=== PATIENT | female | born 1955 | race Caucasian/White ===

== ENCOUNTER → 2019-04-03 10:20 | Outpatient (CLI) | payer BC, SELFPAY ==
--- NOTE | ~2019-04-03 | DEXA_ITS ---
Bone Density Report Name: Bettie Cruz Age: 63 Sex: Female Ethnicity: White Date of : 1955 Indication: postmenopausal; screening for osteoporosis; Referring Provider: VIK OTERO Study: Bone densitometry was performed. Exam Date: April 03, 2019 Accession number: [id number] Bone Density: Region BMD T-score Z-score Classification AP Spine (L1-L4) 0.690 -3.2 -1.6 Osteoporosis Femoral Neck (Left) 0.581 -2.4 -1.0 Osteopenia Total Hip (Left) 0.767 -1.4 -0.3 Osteopenia Femoral Neck (Right) 0.548 -2.7 -1.3 Osteoporosis Total Hip (Right) 0.699 -2.0 -0.9 Osteopenia Total Hip Mean 0.733 -1.7 -0.6 Osteopenia World Health Organization criteria for BMD impression classify patients as: Normal (T-score at or above -1.0), Osteopenia (T-score between -1.0 and -2.5), or Osteoporosis (T-score at or below -2.5). 10-year Fracture Risk: FRAX not reported because: Some T-score for Spine Total or Hip Total or Femoral Neck at or below -2.5 Clinical Information Provided by Patient: Has used the following medications: Vitamin D Patient maximum height was 66.75 Menopause Age: 53 No regular weight bearing exercise Does not regularly consume dairy products Drinks caffeinated beverages Onset of menses at age 14 Number of children 2 Impression: The patient has osteoporosis, based on the Total Spine T-score. Discussion: INCREASED RISK OF FRACTURE. BONE DENSITY IS UNDESIRABLY LOW AT ONE OR MORE SKELETAL SITES, CONSISTENT WITH POSTMENOPAUSAL OSTEOPOROSIS. This patient's lowest T-score meets the World Health Organization's (WHO) criteria for osteoporosis at one or more sites (T-score -2.5 or below). In untreated patients, the risk of osteoporotic fracture increases approximately two-fold for each 1.0 SD decrease in T-score. Low bone density is not the only risk factor for fracture; also consider factors such as patient's age, frailty or poor health, risk of falling, risk of injury, previous osteoporotic fracture, family history of osteoporosis, cigarette smoking, low body weight, etc. Not everyone with low bone mineral density has osteoporosis; osteomalacia and other metabolic bone disorders should also be considered. Patients who have osteoporosis should be evaluated for specific diseases and conditions (secondary causes) that may cause or contribute to bone loss. The [place] [employer]ocr[employer] (AACE) and National Osteoporosis Foundation (NOF) recommend pharmacologic intervention for all postmenopausal women whose T-score is in this range. The patient should follow a healthful lifestyle (good nutrition with adequate calcium and vitamin D, and appropriate weight-bearing exercise). Follow-Up: Consider a repeat BMD and Vertebral Fracture Assessment (VFA) exam in 2 years or sooner if medically necessa
== END ==
PROVIDERS: PCP Internal Medicine Infectious Disease
DX: M81.0 Age-related osteoporosis without current pathological fracture (principal); M85.89 Other specified disorders of bone density and structure, multiple sites
CPT/HCPCS: 77080

== ENCOUNTER 2019-09-01 09:28 | Outpatient (CLI) | payer BC, SELFPAY ==
--- NOTE | 2019-09-06 13:00 | SLEEP_ITS ---
Home Sleep Test DATE OF STUDY: 09/01/2019 ORDERING PHYSICIAN: Otilia Adams MD. REASON FOR THIS STUDY: Obstructive sleep apnea syndrome. HISTORY: This patient is a 64-year-old woman, 5 feet 7 inches tall, weighing 125 pounds with a body mass index of 19.6. She has complaints of mental fogginess, non-refreshing sleep, lack of energy, loud snoring and waking up multiple times at night. She wakes up in the morning with a headache. She has used a CPAP machine in the past, but felt like she was not getting enough air and it was difficult to breathe, both taking a breath in and breathing out. She frequently snores and it is frequently loud enough that others complain about it. She occasionally has trouble sleeping with a cold. She rarely wakes up gasping for breath at night. She occasionally has problems at night observed by others and she occasionally sweats excessively at night. She rarely notices her heart pounding or beating irregularly at night, rarely falls asleep during the day, rarely involuntarily. She does not fall asleep while driving, during physical effort, or with strong emotion. She occasionally has loss of muscle tone with strong emotion. She rarely has daytime difficulties due to excessive sleepiness. She is retired. She does not have feeling of paralysis on waking or falling asleep. She occasionally has vivid dreamlike scenes upon waking or falling asleep. She is never afraid to go to sleep. She rarely has nightmares. She rarely remembers her dreams. She occasionally has racing thoughts, frequently feels sad, depressed, anxious and has muscular tension. She rarely notices parts of her body jerking. She does not kick at night or have crawly achy feelings in her legs. She rarely has leg pain at night. She does not have morning jaw pain. She occasionally grinds her teeth during sleep. She occasionally is bothered by pain during the day. She is rarely bothered by pain at night. She frequently wakes up feeling stiff in the morning, occasionally with sore achy muscles, occasionally with pain in the neck and spine. She has headaches, palpitations, sexual problems, fatigue, memory problems and concentration difficulties. She goes to bed between 10:00 and 11:00 p.m., falling asleep within 5 to 10 minutes, waking 3 to 4 times at night and she will go to the bathroom to urinate. She stays awake for about 5 minutes. She wakes in the morning at 07:00 to 08:00 a.m. Weekend schedule is the same. She estimates 7 to 8 hours of sleep at night. She does not take naps. She is usually drowsy in the morning for up to 2 hours. MEDICAL COMORBIDITIES: Neck and back pain, osteoporosis, nasal allergies, history of thyrotoxicosis, hyperlipidemia, obstructive sleep apnea syndrome on a prior home sleep test, 02/05/2017. This was an EASY BREATH. Home sleep test with an apnea-hypopnea index of 16.4, majority were obstructive, 34 obstructives, 16 central and 4 mixed apneas and the lowest saturation 84%. She previously did not have success using an auto PAP, which she purchased online. It could be that the range of pressures was too high. Indiscriminate pressure can worsen the central apnea component. I do not know what her prior settings were. The patient also has depression. Occasional heartburn. Montse's thyroiditis. MEDICATIONS: Valacyclovir 500 mg as needed for herpes. HABITS: Tobacco for several years, quit in 1979. Caffeine, 1 cup in the morning. Alcohol, 1 or 2 times weekly, red wine. DESCRIPTION OF THE STUDY: On the Vance Sleepiness Scale, her score is 5. This was conducted as an unattended type 3 portable home sleep test using 4 channel monitoring including respiratory effort channel, snoring channel, oxygen saturation channel, and hear
== END 2019-09-01 09:29 | disposition home or self-care (01) ==
LOC: ANHCSM 09:32
PROVIDERS: Visit Provider Internal Medicine Critical Care Medicine
DX: G47.33 Obstructive sleep apnea (adult) (pediatric) (principal)
CPT/HCPCS: 95806

== ENCOUNTER → 2019-09-04 10:44 | Outpatient (CLI) | payer BC, SELFPAY ==
--- NOTE | ~2019-09-04 | CT_ITS ---
EXAMINATION: CT chest wo con DATE: 09/04/2019 11:22 INDICATION: Solitary pulmonary nodule TECHNIQUE: Computed tomography (CT) of the chest was performed without intravenous contrast. The dose -length product (DLP) was 131.75 mGy-cm. Automated exposure control and iterative reconstruction tech nique were employed. COMPARISON: 03/03/2019 FINDINGS: There is a stable 10 mm x 9 mm pleural-based nodule of the right lower lobe. Additional sma ller pulmonary nodules measure up to 3 mm. The lungs are free of acute opacities. There is no pleural effusion or pneumothorax. Calcified coronary artery atherosclerosis is noted. No pathologically enla rged thoracic lymph nodes are identified. The heart size is normal. There is a trace pericardial effu malick. IMPRESSION: 1. Stable right lower lobe nodule, likely rounded atelectasis or scarring. Recommend follow-up CT in 12 months. Reviewed, dictated and finalized at location B. IMPRESSION: 1. Stable right lower lobe nodule, likely rounded atelectasis or scarring. Brian mmend follow-up CT in 12 months.
== END ==
PROVIDERS: PCP Internal Medicine Infectious Disease; Visit Provider Internal Medicine Critical Care Medicine
DX: R91.1 Solitary pulmonary nodule (principal)
CPT/HCPCS: 71250

== ENCOUNTER → 2019-09-04 10:45 | Outpatient (CLI) | payer BC, SELFPAY ==
--- NOTE | ~2019-09-04 | CT_ITS ---
EXAMINATION: CT abdomen pelvis w con DATE: 09/04/2019 11:22 INDICATION: Right ovarian mass. Right lower quadrant pain. TECHNIQUE: Computed tomography (CT) of the abdomen and pelvis was performed with 100 cc Omnipaque 350 intravenous contrast. The dose-length product was 299.63 mGy-cm. Automated exposure control and iter ative reconstruction technique were employed. COMPARISON: CT dated 03/03/2019 FINDINGS: There is a pleural-based right lower lobe mass measuring 10 x 7 mm without significant garcía ge from prior examination allowing for differences of technique. There is a small pericardial effusio n. Borderline heart size. No significant pleural effusion. Small subcentimeter hypodensity left hepatic lobe, most likely benign. The spleen, pancreas, adrenal glands and kidneys are unremarkable. There is moderate gas and fluid throughout the small bowel, poss ibly ileus. There is a hypodense right adnexal mass measuring 2.8 x 2.7 x 2.7 cm, possibly ovarian. S mall amount of free fluid in the pelvis. Nonobstructive bowel gas pattern. No acute osseous abnormali ty. IMPRESSION: 1. Hypodense right adnexal mass measuring 2.8 cm maximum dimension, likely ovarian. Similar appearanc e to prior examination. Differential diagnosis includes located ovarian/adnexal cyst, cystadenoma/cys tadenocarcinoma. Consider correlation with ultrasound. 2: Stable pleural-based 10 mm right lower lobe mass with adjacent atelectasis/scarring. Continued six -month follow-up CT is recommended. 3: Small pericardial effusion. Reviewed, dictated and finalized at location A. IMPRESSION: 1. Hypodense right adnexal mass measuring 2.8 cm maximum dimension, likely ovar haley. Similar appearance to prior examination. Differential diagnosis includes l ocated ovarian/adnexal cyst, cystadenoma/cystadenocarcinoma. Consider correlati on with ultrasound. 2: Stable pleural-based 10 mm right lower lobe mass with adjacent atelectasis/s carring. Continued six-month follow-up CT is recommended. 3: Small pericardial effusion.
[2019-09-04 11:10] LABS: Estimated Glomerular Filt Rate > 60
== END ==
PROVIDERS: PCP Internal Medicine Infectious Disease
DX: N83.8 Other noninflammatory disorders of ovary, fallopian tube and broad ligament (principal); R91.8 Other nonspecific abnormal finding of lung field; I31.3 Pericardial effusion (noninflammatory)
CPT/HCPCS: 36415; 74177; Q9967

== ENCOUNTER 2019-10-13 12:38 | Outpatient (CLI) | payer BC, SELFPAY ==
--- NOTE | 2019-10-24 12:25 | WPDPFTINT ---
PFT Interpretation PFT Interpretation: This PFT met all criteria for ATS standards and reproducibility FEV/FVC post bronchodilator 77% of predicted FEV1 108% FVC 103% TLC 108% RV 113% RV/TLC 40% DLCO 97% when adjusted for alveolar volume but not adjusted for hemoglobin Flow volume loops were normal Impression: This is a normal PFT. Clinical correlation is advised.
== END 2019-10-13 12:39 | disposition home or self-care (01) ==
PROVIDERS: PCP Internal Medicine Infectious Disease; Visit Provider Internal Medicine Critical Care Medicine
DX: R07.9 Chest pain, unspecified (principal)
CPT/HCPCS: 94060; 94726; 94729

== ENCOUNTER 2019-12-05 01:46 | Outpatient (CLI) | payer BC, SELFPAY ==
[2019-12-05 19:05] LABS: SARS-CoV-2 RNA PCR Negative
== END 2019-12-05 01:47 | disposition home or self-care (01) ==
LOC: ANHCOVIDDT 01:46
PROVIDERS: PCP Internal Medicine Infectious Disease; Visit Provider Internal Medicine Critical Care Medicine
DX: Z01.812 Encounter for preprocedural laboratory examination (principal); Z20.828 Contact with and (suspected) exposure to other viral communicable diseases
CPT/HCPCS: 87635; C9803; U0003

== ENCOUNTER 2019-12-07 07:50 | Outpatient (CLI) | payer BC, SELFPAY ==
--- NOTE | 2020-01-08 15:34 | WPDSLEEPSTUD ---
Sleep Study Date of Study: 12/07/19 Ordering Provider: Israel Palmer APRN Interpreting Physician: Otilia Adams MD Sleep Study Type: CPAP Titration Height: 1.7 m Weight: 62.142 kg Body Mass Index: 21.4 Neck Circumference: 31.75 cm [place]: 5 Reason for Sleep Study On a home sleep test September 01, 2019, 2/3 of the events were obstructive, had a trial of auto Pap without success 5-15 cm. She adjusted her device to a CPAP of 8 cm with AHI 6.7 from Oct 11 through Nov 04. She has had bloating with increased pressures. She previously did not have success using an auto PAP, which she purchased online. It could be that the range of pressures was too high. Indiscriminate pressure can worsen the central apnea component. Sleep History Bettie Cruz is a 64-year-old female who had a home sleep test on September 01, 2019 which showed moderate obstructive sleep apnea with an AHI of 19. At the time, she had been on CPAP with poor response to therapy. During the HST 08/31, 68% of her events were obstructive and the remainder were central and mixed. She desaturated to 86%. She has used APAP therapy and CPAPat home but it has been less than optimal for her. She has an elevated apnea-hypopnea index. She has complaints of mental fogginess, non-refreshing sleep, lack of energy, loud snoring and waking up multiple times at night. She wakes up in the morning with a headache. She has used a CPAP machine in the past, but felt like she was not getting enough air and it was difficult to breathe, both taking a breath in and breathing out. She frequently snores and it is frequently loud enough that others complain about it. She occasionally has trouble sleeping with a cold. She rarely wakes up gasping for breath at night. She occasionally has problems at night observed by others and she occasionally sweats excessively at night. She rarely notices her heart pounding or beating irregularly at night, rarely falls asleep during the day, rarely involuntarily. She does not fall asleep while driving, during physical effort, or with strong emotion. She occasionally has loss of muscle tone with strong emotion. She rarely has daytime difficulties due to excessive sleepiness. She is retired. She does not have feeling of paralysis on waking or falling asleep. She occasionally has vivid dreamlike scenes upon waking or falling asleep. She is never afraid to go to sleep. She rarely has nightmares. She rarely remembers her dreams. She occasionally has racing thoughts, frequently feels sad, depressed, anxious and has muscular tension. She rarely notices parts of her body jerking. She does not kick at night or have crawly achy feelings in her legs. She rarely has leg pain at night. She does not have morning jaw pain. She occasionally grinds her teeth during sleep. She occasionally is bothered by pain during the day. She is rarely bothered by pain at night. She frequently wakes up feeling stiff in the morning, occasionally with sore achy muscles, occasionally with pain in the neck and spine. She has headaches, palpitations, sexual problems, fatigue, memory problems and concentration difficulties. She goes to bed between 10:00 and 11:00 p.m., falling asleep within 5 to 10 minutes, waking 3 to 4 times at night and she will go to the bathroom to urinate. She stays awake for about 5 minutes. She wakes in the morning at 07:00 to 08:00 a.m. Weekend schedule is the same. She estimates 7 to 8 hours of sleep at night. She does not take naps. She is usually drowsy in the morning for up to 2 hours. PMH: Depression. Occasional heartburn. Montse's thyroiditis.Neck and back pain, osteoporosis, nasal allergies, history of thyrotoxicosis, hyperlipidemia, obstructive sleep apnea syndrome on a prior home sleep test, 02/05/2017. This was an EASY BREATH Home sleep test with an apnea-hypopnea index of 16.4, majority were obstructive, 34 obstructives, 16 central and 4 mixed apneas and the lowest saturation
[2020-01-31 06:58] VITALS: BMI 21.4
== END 2019-12-07 07:51 | disposition home or self-care (01) ==
LOC: ANHCSM 07:51
PROVIDERS: PCP Internal Medicine Infectious Disease; Visit Provider Nurse Practitioner Family
DX: G47.33 Obstructive sleep apnea (adult) (pediatric) (principal)
CPT/HCPCS: 95811

== ENCOUNTER → 2020-01-15 14:51 | Outpatient (CLI) | payer BC, SELFPAY ==
--- NOTE | ~2020-01-15 | CT_ITS ---
EXAMINATION: CT abdomen pelvis w con INDICATION: Right ovarian mass TECHNIQUE: Computed tomographic images of the abdomen and pelvis were obtained after the administrati on of 100 cc of Omnipaque 350 intravenous contrast. The dose-length product (DLP) was 378.13 mGy-cm. Automated exposure control and iterative reconstruction technique were employed. COMPARISON: 09/04/2019, 03/03/2019 FINDINGS: A pleural-based nodule of the right lower lobe remains unchanged. The heart size is normal. The liver, spleen, pancreas, gallbladder, and adrenal glands are normal. The kidneys are unremarkabl e. No pathologically enlarged abdominal or pelvic lymph nodes are identified. There is calcified athe rosclerosis of the aorta and many of the other arteries. There is no free intraperitoneal gas or evid ence of bowel obstruction. There is an approximately 3.6 x 2.7 cm lesion of the right adnexa which co ntains both cystic and solid components. There appears to be slight increase in size since the prior examination. Calcified uterine fibroids are again noted. IMPRESSION: 1. Cystic and solid lesion of the right adnexa with apparent slight interval enlargement. Finding cou ld reflect a cyst within the normal right ovary or a cystic adnexal mass. Recommend further evaluatio n by pelvic ultrasound or MRI without and with contrast. Reviewed, dictated and finalized at location A. OMER ACCOUNT REPRESENTATIVE IMPRESSION: 1. Cystic and solid lesion of the right adnexa with apparent slight interval en largement. Finding could reflect a cyst within the normal right ovary or a cyst ic adnexal mass. Recommend further evaluation by pelvic ultrasound or MRI witho ut and with contrast.
[2020-01-15 15:13] LABS: Estimated Glomerular Filt Rate > 60
== END ==
PROVIDERS: PCP Internal Medicine Infectious Disease; Visit Provider Obstetrics & Gynecology Gynecologic Oncology
DX: N83.8 Other noninflammatory disorders of ovary, fallopian tube and broad ligament (principal); R91.1 Solitary pulmonary nodule
CPT/HCPCS: 74177; Q9967

== ENCOUNTER → 2020-02-07 11:02 | Outpatient (CLI) | payer BC, SELFPAY ==
--- NOTE | ~2020-02-07 | CT_ITS ---
EXAMINATION: CT chest wo con DATE: 02/07/2020 11:26 INDICATION: Lung nodule TECHNIQUE: Computed tomography (CT) of the chest was performed without intravenous contrast. The dose -length product (DLP) was 37.22 mGy-cm. Automated exposure control and iterative reconstruction techn ique were employed. COMPARISON: 09/04/2019 FINDINGS: There is a stable 10 mm x 9 mm pleural-based nodule of the right lower lobe. Additional sma ller nodules are again noted measuring up to 3 mm. No new pulmonary nodules are identified. There is calcified coronary artery atherosclerosis. No pathologically enlarged thoracic lymph nodes are identi fied. The heart size is normal. IMPRESSION: 1. Stable pleural-based nodule of the right lower lobe likely reflecting rounded atelectasis or scarr ing. Follow-up low-dose CT in 12 months is recommended. Reviewed, dictated and finalized at location A. [employer] IMPRESSION: 1. Stable pleural-based nodule of the right lower lobe likely reflecting rounde d atelectasis or scarring. Follow-up low-dose CT in 12 months is recommended.
== END ==
PROVIDERS: PCP Internal Medicine Infectious Disease; Visit Provider Nurse Practitioner Family
DX: R91.1 Solitary pulmonary nodule (principal)
CPT/HCPCS: 71250

== ENCOUNTER → 2021-11-14 10:15 | Outpatient (CLI) | payer MEDICARE, OTHER, SELFPAY ==
--- NOTE | ~2021-11-14 | DEXA_ITS ---
Bone Density Report Name: JOSE CIFUENTES Age: 66 Sex: Female Ethnicity: White Date of : 1955 Indication: postmenopausal osteoporosis; Referring Provider: Boy, Phi Lyons Study: Bone densitometry was performed. Exam Date: November 14, 2021 Accession number: [id number] Bone Density: Region BMD T-score Z-score Classification AP Spine (L1-L4) 0.707 -3.1 -1.3 Osteoporosis Femoral Neck (Left) 0.599 -2.3 -0.7 Osteopenia Total Hip (Left) 0.777 -1.4 -0.1 Osteopenia Femoral Neck (Right) 0.555 -2.7 -1.1 Osteoporosis Total Hip (Right) 0.726 -1.8 -0.5 Osteopenia Total Hip Mean 0.752 -1.6 -0.3 Osteopenia World Health Organization criteria for BMD impression classify patients as: Normal (T-score at or above -1.0), Osteopenia (T-score between -1.0 and -2.5), or Osteoporosis (T-score at or below -2.5). 10-year Fracture Risk: FRAX not reported because: Some T-score for Spine Total or Hip Total or Femoral Neck at or below -2.5 Previous Exams: Region Exam Age BMD T-score BMD Change BMD Change Date g/cm2 vs Baseline vs Previous AP Spine(L1-L4) 11/14/2021 66 0.707 -3.1 0.017 0.017 04/03/2019 63 0.690 -3.2 Total Hip(Left) 11/14/2021 66 0.777 -1.4 0.010 0.010 04/03/2019 63 0.767 -1.4 Total Hip(Right) 11/14/2021 66 0.726 -1.8 0.027 0.027 04/03/2019 63 0.699 -2.0 *Denotes significance at 95% confidence level, LSC for AP Spine = 0.022 g/cm2, LSC for Total Hip = 0.027 g/cm2 Clinical Information Provided by Patient: Has used the following medications: Vitamin D, Calcium Patient maximum height was 67.0 Menopause Age: 53 Drinks caffeinated beverages Onset of menses at age 14 Number of children 2 Impression: The patient has osteoporosis, based on the Total Spine T-score. No significant bone loss was observed. Discussion: INCREASED RISK OF FRACTURE. BONE DENSITY IS UNDESIRABLY LOW AT ONE OR MORE SKELETAL SITES, CONSISTENT WITH POSTMENOPAUSAL OSTEOPOROSIS. This patient's lowest T-score meets the World Health Organization's (WHO) criteria for osteoporosis at one or more sites (T-score -2.5 or below). In untreated patients, the risk of osteoporotic fracture increases approximately two-fold for each 1.0 SD decrease in T-score. Low bone density is not the only risk factor for fracture; also consider factors such as patient's age, frailty or poor health, risk of falling, risk of injury, previous ost
== END ==
PROVIDERS: PCP Internal Medicine Infectious Disease; Visit Provider Internal Medicine Infectious Disease
DX: Z78.0 Asymptomatic menopausal state (principal); M81.0 Age-related osteoporosis without current pathological fracture; M85.852 Other specified disorders of bone density and structure, left thigh
CPT/HCPCS: 77080

== ENCOUNTER → 2022-03-19 08:42 | Outpatient (CLI) | payer MEDICARE, OTHER, SELFPAY ==
--- NOTE | ~2022-03-19 | CT_ITS ---
CT Scan of the Chest without Contrast: Clinical Indication: Pulmonary nodule Technique: Contiguous sections were acquired throughout the chest without intravenous contrast. Dose reduction technique was used on this scan by utilizing automated exposure control and iterative recon struction technique. The dose-length product (DLP) was 39.82 mGy-cm. COMPARISON: 02/07/2020, 09/04/2019 Findings: There is no evidence of any significant mediastinal, hilar or axillary lymphadenopathy. There are mil d coronary artery calcium cages. No aortic aneurysm. There is no evidence of pleural or pericardial effusion. 1.3 x 0.8 cm pleural-based nodular opacity at the right lower lobe is essentially stable from prior e xams. Coronal images raise possibility of focal rounded atelectasis. No other pulmonary abnormality s een. Images through the upper abdomen reveal no abnormalities. Impression: Stable 1.3 x 0.8 cm pleural-based nodular opacity right lower lobe. Stability over this time interval is consistent with benignity. Chronic scarring or rounded atelectasis are likely considerations. Reviewed, dictated and finalized at location M. RTISING STRATEGIST Impression: Stable 1.3 x 0.8 cm pleural-based nodular opacity right lower lobe. Stability o lynda this time interval is consistent with benignity. Chronic scarring or rounde d atelectasis are likely considerations.
== END ==
PROVIDERS: PCP Nurse Practitioner Family; Visit Provider Internal Medicine Infectious Disease
DX: R91.1 Solitary pulmonary nodule (principal)
CPT/HCPCS: 71250

== ENCOUNTER 2022-12-01 15:12 | Outpatient (CLI) | payer MEDICARE, OTHER, SELFPAY | END 2022-12-01 15:13 | disposition home or self-care (01) | PROVIDERS: PCP Nurse Practitioner Family; Referring Provider Internal Medicine Infectious Disease; Visit Provider Internal Medicine Critical Care Medicine | DX: D64.9 Anemia, unspecified (principal) | CPT/HCPCS: 36415; 82728 ==

== ENCOUNTER 2022-12-29 09:11 | Outpatient (CLI) | payer MEDICARE, OTHER, SELFPAY ==
--- NOTE | 2023-01-02 22:06 | WPDSLEEPSTUD ---
Sleep Study Date of Study: 12/29/22 Ordering Provider: Otilia Adams MD Interpreting Physician: Otilia Adams MD Sleep Study Type: Split Polysomnogram Height: 1.7 m Weight: 63.503 kg Body Mass Index: 21.9 Neck Circumference (inches): 13 [place]: 2 Reason for Sleep Study Diagnosis of obstructive sleep apnea in 2019 * 12/07/2019-full night CPAP/BiPAP titration on 12/07/2019 shows a challenging procedure; the?optimal pressure appears to be bilevel with a medium Airfit F30 full face mask and a heated humidifier Sleep History Bettie Cruz is a 67-year-old woman with a long history of loud snoring. She was diagnosed with sleep apnea, use CPAP for a year or so, quit using it during a severe cold with a cough. She never awakens from sleep short of breath. She occasionally wakes at night with heartburn, belching or coughing.??She constantly snores, constantly snores loudly enough that others complain. She occasionally has trouble sleeping when she has a cold. She frequently wakes up gasping for breath during the night. She frequently has breathing problems at night. She rarely sweats excessively at night. She rarely notices her heart pounding or beating irregularly during the night. She never falls asleep during the day. She never falls asleep involuntarily, never falls asleep while driving. She never experiences loss of muscle tone with strong emotion. She never feels paralyzed on waking or falling asleep. She occasionally experiences vivid dreams upon waking or falling asleep. She never feels afraid of going to sleep. She rarely has nightmares. She rarely recalls her dreams. She occasionally has thoughts racing through her mind. She frequently feels sad or depressed. She rarely feels anxiety. She is not sure if she kicks at night. She rarely notices parts of her body jerk. She never feels crawling or aching feelings in her legs. She occasionally feels leg pain at night. She occasional has morning jaw pain, and does grind her teeth at night according to her dentist. She rarely feels bothered by pain during the day, is rarely awakened by pain during the night. She frequently wakes up feeling stiff in the morning, occasional wakes feeling sore or achy in the morning. She occasionally awakens with pain in her neck, spine, or joints. She rarely has nightmares. She had increase belching and flatus over the prior 2 weeks. She occasionally has memory problems. She frequently has concentration difficulties. Normal bedtime is between 10:00 p.m. and 10:30 p.m., falling asleep within 2-15 minutes, waking between 2 and 4 times during the night for just 5 minutes to go to the bathroom, get a drink of water. She is able to return to sleep easily. She wakes in the morning between 6:00 a.m. and 7:00 a.m.. Her weekend schedule is the same. She estimates getting between 6 and 7 hours of sleep at night. She does not take naps during the day. She is drowsy for 2 hours after waking. She feels better in the late morning or afternoon compared to other times of day. Habits:??Tobacco: Quit 40 years ago Caffeine: 1 large cup per day. Alcohol: 0-2 beverages, on occasion, once or twice a month Recreational substances: none PMFSH Past Medical History Medical History Chronic seasonal allergic rhinitis History of thyrotoxicosis History of tobacco abuse Lung nodule Mixed hyperlipidemia Moderate obstructive sleep apnea Obstructive sleep apnea (~08/2019) Persistent mood disorder Surgical History Surgical History S/P removal of right ovary Social History Social History Smoking status: Former smoker Medications Home Medications Medication Instructions Recorded Confirmed Type valacyclovir 500 mg tablet 500 mg PO DAILY 01/31/20 12/01/22 History eszopiclone 2 mg
[2023-01-04 18:22] VITALS: BMI 21.9
== END 2022-12-30 07:05 | disposition home or self-care (01) ==
LOC: ANHCSM 09:13
PROVIDERS: PCP Nurse Practitioner Family; Visit Provider Internal Medicine Critical Care Medicine
DX: G47.33 Obstructive sleep apnea (adult) (pediatric) (principal); G25.81 Restless legs syndrome
CPT/HCPCS: 95811

== ENCOUNTER 2024-12-05 13:37 | Outpatient (CLI) | payer MEDICARE, SELFPAY ==
--- NOTE | ~2024-12-05 | DEXA_ITS ---
Bone Density Report Name: JOSE CIFUENTES Age: 69 Sex: Female Ethnicity: White Date of : 1955 Indication: postmenopausal osteoporosis; Referring Provider: Boy, Phi Lyons Study: Bone densitometry was performed. Exam Date: December 05, 2024 Accession number: [id number] Bone Density: Region BMD T-score Z-score Classification AP Spine(L1-L4) 0.645 -3.7 -1.7 Osteoporosis Femoral Neck (Left) 0.598 -2.3 -0.6 Osteopenia Total Hip (Left) 0.745 -1.6 -0.2 Osteopenia Femoral Neck (Right) 0.553 -2.7 -1.0 Osteoporosis Total Hip (Right) 0.670 -2.2 -0.8 Osteopenia Total Hip Mean 0.708 -1.9 -0.5 Osteopenia World Health Organization criteria for BMD impression classify patients as: Normal (T-score at or above -1.0), Osteopenia (T-score between -1.0 and -2.5), or Osteoporosis (T-score at or below -2.5). 10-year Fracture Risk: FRAX not reported because: Some T-score for Spine Total or Hip Total or Femoral Neck at or below -2.5 Previous Exams: -- Region Exam Age BMD T-score BMD Change BMD Change Date g/cm2 vs Baseline vs Previous -- AP Spine (L1-L4) 12/05/2024 69 0.645 -3.7 -6.5%* -8.7%* 11/14/2021 66 0.707 -3.1 2.5% 2.5% 04/03/2019 63 0.690 -3.2 Total Hip(Left) 12/05/2024 69 0.745 -1.6 -2.8% -4.1%* 11/14/2021 66 0.777 -1.4 1.3% 1.3% 04/03/2019 63 0.767 -1.4 Total Hip(Right) 12/05/2024 69 0.670 -2.2 -4.1%* -7.6%* 11/14/2021 66 0.726 -1.8 3.9% 3.9% 04/03/2019 63 0.699 -2.0 -- *Denotes significance at 95% confidence level, LSC for AP Spine = 0.022 g/cm2, LSC for Total Hip = 0.027 g/cm2 Clinical Information Provided by Patient: Has used the following medications: Vitamin D, Calcium Patient maximum height was 67 Menopause Age: 53 Drinks caffeinated beverages Onset of menses at age 13 Number of children 2 Impression: The patient has osteoporosis, based on the Total Spine T-score. The BMD for the AP Spine (L1-L4) decreased, changing by -8.7% since the last DXA exam. The BMD for the Total Hip(Left) decreased, changing by -4.1% since the last DXA exam. The BMD for the Total Hip(Right) decreased, changing by -7.6% since the last DXA exam. Discussion: INCREASED RISK OF FRACTURE. BONE DENSITY IS UNDESIRABLY LOW AT ONE OR MORE SKELETAL SITES, CONSISTENT WITH POSTMENOPAUSAL OSTEOPOROSIS. This patient's lowest T-score meets the World Health Organization's (WHO) criteria for osteoporosis at one or more sites (T-score -2.5 or below). In untreated patients, the risk of osteoporotic fracture increases approximately two-fold for each 1.0 SD decrease in T-score. Low bone density is not the only risk factor for fracture; also consider factors such as patient's age, frailty or poor health, risk of falling, risk of injury, previous osteoporotic fracture, family history of osteoporosis, cigarette smoking, low body weight, etc. Not everyone with low bone mineral density has osteoporosis; osteomalacia and other metabolic bone disorders should also be considered. Patients who have osteoporosis should be evaluated for specific diseases and conditions (secondary causes) that may cause or contribute to bone loss. The [place] [employer] (AACE) and National Osteoporosis Foundation (NOF) recommend pharmacologic intervention for all postmenopausal women whose T-score is in this range. The patient should follow a healthful lifestyle (good nutrition with adequate calcium and vitamin D, and appropriate weight-bearing exercise). Follow-Up: Consider a repeat BMD and Vertebral Fracture Assessment (VFA) exam in 2 years or sooner if medically necessary, to reassess this patient's status. Reported by: LINN on 12/05/2024 2:06:00 PM. Reviewed, dictated and finalized at location A.
== END 2024-12-05 13:38 | disposition home or self-care (01) ==
LOC: MICIMG 13:42
PROVIDERS: PCP Internal Medicine Infectious Disease; Visit Provider Internal Medicine Infectious Disease
DX: M81.0 Age-related osteoporosis without current pathological fracture (principal); M85.89 Other specified disorders of bone density and structure, multiple sites; Z78.0 Asymptomatic menopausal state
CPT/HCPCS: 77080